=== PATIENT | female | born 1990 | race Caucasian/White ===

== ENCOUNTER 2023-03-20 10:00 | Outpatient (AMB) | payer OTHER, SELFPAY ==
--- NOTE | 2023-03-20 10:06 | A.OFFPC_ITS ---
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 Noticed tachycardia Murmur noticed while previously Allergies - using benadryl PMHx: None SurgHx: None FHx: Mom: Tachycardia, Hypotension Sister: Tachycardia SocHx: Nonsmoker. EtOH: Occasional 1-2 dr. No drugs. [facility] Medical History (Updated 03/20/23 @ 11:24 by Bobby Ramirez) No pertinent past medical history No family history of mental disorder Surgical History (Updated 03/20/23 @ 10:20 by Alison Hooper) No pertinent past surgical history Family History (Updated 03/20/23 @ 10:20 by Alison Hooper) Father Alcoholism Social History (Updated 03/20/23 @ 10:21 by Alison Hooper) Housing: House Alcohol intake: never Patient Tobacco Use Status: Never used Tobacco e-Cigarette/Vaping Use: Never Used Use of substances other than those prescribed or required for medical reasons: No service: No Current occupational status: employed Current occupation: [employer] Current occupational exposures/hazards: Yes Cognitive needs: No Hearing needs: No Vision needs: Yes Questionnaire PHQ-9 Over the last 2 weeks, how often have you been bothered by any of the following problems? 1. Little interest or pleasure in doing things: several days 2. Feeling down, depressed, or hopeless: several days 3. Trouble falling or staying asleep, or sleeping too much: several days 4. Feeling tired or having little energy: several days 5. Poor appetite or overeating: not at all 6. Feeling bad about yourself - or that you are a failure or have let yourself or your family down: not at all 7. Trouble concentrating on things, such as reading the newspaper or watching t elevision: not at all 8. Moving or speaking so slowly that other people could have noticed. Or the opposite - being so fidgety or restless that you have been moving around a lot more than usual: not at all 9. Thoughts that you would be better off or of hurting yourself in some way: not at all Total score: 4 Depression Screening Interpretation: Negative [id number] - PHQ-9 Billing: Yes Source: Developed by Drs. Yogesh Ferrer, Malina Anderson, Federico Hyde and colleagues, with an educational serena from [employer]. Thrive Questionnaire Date Thrive assessed: 03/20/23 I am a: Patient What is your living situation today?: I have a steady place to live Within the past 12 months, did the food you bought not last and you didn't have the money to get more?: Never true Within the past 12 months, did you worry whether your food would run out before you got money to buy more?: Never true Do you have trouble getting transportation to medical appointments?: No Do you have trouble paying your heating and electricity bill?: No Do you have trouble taking care of your child, family member or friend?: No Do you have trouble with day-to-day activities such as bathing, preparing meals, shopping, managing finances, etc.?: No Are you currently unemployed and looking for a job?: No Are you interested in more education?: No Please select the resources that you would like help with: None Currently or been in a relationship where the following occur: no concerns reported AUDIT C Alcohol Use Questionnaire (AUDIT-C) 1. How often do you have a drink containing alcohol?: Never 3. How often do you have six or more drinks on one occasion?: Never Total Score: 0 JARED-7 AMB Questionnaire JARED-7 Date JARED - 7 assessed: 03/20/23 Feeling nervous, anxious, or on edge: 1 = Several days Not being able to stop or control worryin = Several days Worrying too much about different things: 1 = Several days Trouble relaxin = Several days Being so restless that it is hard to sit still: 1 = Several days Becoming easily annoyed or irritable: 1 = Several days Feeling afraid as if something awful might happen: 0 = Not at all Total JARED-7 score (0-4 normal; 5-9 mild; 10-14 moderate; 15-21 severe): 6 Source: Developed by Drs. Yogesh Ferrer, Malina Anderson, Federico Hyde and colleagues, with an educational serena from [employer]. JARED-7 Assessment Billing JARED-7 Assessment Tool: JARED-7 Assessment 27623 Review of Systems Const Denies chills, Denies fatigue, Denies fever(s), Denies headache(s) and Denies weakness ENT Denies dizziness, Denies headache(s), Reports nasal congestion and Reports nasal discharge Card Denies chest pain, Denies lightheadedness, Denies dyspnea and Denies other (Palpitations) Resp Denies cough, Denies dyspnea, Denies wheezing and Denies other ( shortness of breath) Musc Denies numbness and Denies tingling Neuro Denies dizziness, Denies headache(s), Denies numbness, Denies tingling, Denies paresthesias and Denies weakness Psych Denies anxiety and Denies depression Endo Denies fatigue Aller/Immun Denies wheezing Physical exam (Primary Care) Vital Signs: Last Vital Signs Temp 98.9 F 03/20/23 10:07 Pulse 112 H 03/20/23 10:07 Resp 14 03/20/23 10:07 BP 128/70 03/20/23 10:07 Pulse Ox 98 03/20/23 10:07 Oxygen Delivery Method Room Air 03/20/23 10:07 BMI result Body Mass Index 28.2 Tobacco/Smoking Status: Tobacco use Status Tobacco use date assessed 03/20/23 03/20/23 10:11 Patient Tobacco Use Status Never used Tobacco 03/20/23 10:21 e-Cigarette/Vaping Use Never Used 09/27/23 10:21 PHQ-9: PHQ-9 Score PHQ-9: Total score 4 03/20/23 10:15 Depression Screening Interpretation: Negative Thrive Assessment: Date of Thrive Assessment Date Thrive assessed 03/20/23 03/20/23 10:15 Currently or been in a relationship where the following occur: no concerns reported Const General: no acute distress and well developed Nutritional Appearance: well nourished Orientation/consciousness: patient oriented x3 HENMT Head: Yes normocephalic and Yes atraumatic Eyes General: appearance normal, both eyes and all related structures Pupils: Equal, round and reactive pupils present EOM: EOMs intact bilaterally Resp Effort & Inspection: normal respiratory effort Auscultation: clear to auscultation bilaterally Cardio Rate: tachycardic Rhythm: regular rhythm Heart sounds: S1 normal heart sound present, S2 normal heart sound present, no gallops, Murmur heart sound present (1/6 murmur over the aortic region) and no rubs Neuro General: patient oriented x3 and gait normal Cranial nerves: Yes Equal, round and reactive pupils present Psych Affect: normal affect Assessment and Plan Assessment & Plan (1) Tachycardia: Code(s): R00.0 - Tachycardia, unspecified Plan: EKG: Normal sinus rhythm with normal rate. Normal axis, normal intervals, no hypertrophy, no ST-T-wave changes. Heart rate was elevated at initial presentation and during examiner's evaluation by auscultation; heart rate significantly increases with standing/moving. Check Holter monitor test (2) Murmur: Code(s): R01.1 - Cardiac murmur, unspecified Plan: Faint systolic murmur 1/6 at aortic region. Patient also has tachycardia Check echo (3) Allergies: Code(s): T78.40XA - Allergy, unspecified, initial encounter Plan: Allergies and sinusitis, likely sinus infection. Start Z-Adalberto and nasal steroid. Can continue nasal steroid. She can also Continue Benadryl (4) Sinusitis: Code(s): J32.9 - Chronic sinusitis, unspecified Plan: As above (5) History of ectopic : Code(s): Z87.59 - Personal history of other complications of , childbirth and the puerperium Plan: No sequela (6) Laboratory exam ordered as part of routine general medical examination: Code(s): Z00.00 - Encounter for general adult medical examination without abnormal findings Plan: Check labs Orders: Orders Lipid Panel Today Z00.00 - Encounter for general adult medical examination without abnormal findings TSH reflex Free T4 Today Z00.00 - Encounter for general adult medical examination without abnormal findings Hepatitis B,C Profile Today Z11.3 - Encounter for screening for infections with a predominantly sexual mode of transmission CT NG by PCR Today Z11.3 - Encounter for screening for infections with a predominantly sexual mode of transmission CA echo transthoracic complete Today R00.0 - Tachycardia, unspecified, R01.1 - Cardiac murmur, unspecified ECG holter monitor 48 hour Today R00.0 - Tachycardia, unspecified Comprehensive [place]. Panel Fast Today Z00.00 - Encounter for general adult medical examination without abnormal findings Microalbumin, Random (w Creat) Today I10 - Essential (primary) hypertension UA and rflx microscopic Today Z00.00 - Encounter for general adult medical examination without abnormal findings Syphilis Screen Today Z11.3 - Encounter for screening for infections with a predominantly sexual mode of transmission HIV Ab/Ag Today Z11.3 - Encounter for screening for infections with a predominantly sexual mode of transmission AMB EKG-In Office Today R00.0 - Tachycardia, unspecified Medications: New azithromycin (Zithromax Z-Adalberto) take 500 mg today (day 1), then 250 mg for 4 days (days 2-5) PO 6 tabs 0RF 5 days fluticasone propionate 50 mcg/actuation (Flonase Allergy Relief) administer into each nostril 1 spray intranasal Q12H 16 grams 2RF 30 days Coding Level of Care Code New Pt Level 4 (64198) Diagnoses Tachycardia R00.0 Murmur R01.1 Allergies T78.40XA Sinusitis J32.9 History of ectopic Z87.59 Laboratory exam ordered as part of routine general medical examination Z00.00 Additional Codes JARED-7 Assessment Billing - JARED-7 Assessment Tool: JARED-7 Assessment 53234 ([id number])
[2023-03-20 10:07] VITALS: BP 128/70; PULSE 112; RESP 14; TEMP 37.2; O2SAT 98; BMI 28.2
== END 2023-03-20 11:44 | disposition home or self-care (01) ==
PROVIDERS: PCP Nurse Practitioner Family; Visit Provider Family Medicine
DX: R00.0 Tachycardia, unspecified (principal); R01.1 Cardiac murmur, unspecified; T78.40XA Allergy, unspecified, initial encounter; J32.9 Chronic sinusitis, unspecified; Z87.59 Personal history of other complications of pregnancy, childbirth and the puerperium; Z00.00 Encounter for general adult medical examination without abnormal findings
CPT/HCPCS: 99204

== ENCOUNTER → 2023-04-18 07:59 | Outpatient (REF) | payer OTHER, SELFPAY ==
--- NOTE | 2023-04-18 08:02 | HM_ITS ---
conclusion: 1. Patient was monitored for total period of 2 days 2. Baseline was normal sinus rhythm with average heart of 84 beats per minute 3. Rare ectopy noted 4. No significant pauses noted 5. Patient did not report any symptoms MTDD
--- NOTE | 2023-04-18 08:02 | CA_ITS ---
Transthoracic Echocardiogram Patient (Last, First, Middle): Verenice Fernando, Gender: Female Date of : 1990 Age: 33 Procedure Date: 04/18/2023 Procedure Type: Transthoracic Echocardiogram Location: OP Height: 152.4 cm Weight: 62.14 kg BSA: 1.59 m2 Heart Rate: bpm BP: 118 / 78 mmHg Macroeconomics Professor: TO Referring MD: Bulmaro Anne MD Drawing Press Operator: Laron Kunz MD Symptoms: R00.0 - Tachycardia, unspecified Study Quality: Adequate/Contrast ECG Rhythm: Sinus Conclusions: - Essentially normal study Findings Procedure Information Contrast agent, definity, is being given per protocol without apparent complications. Left Ventricle Normal left ventricular size, thickness, and systolic function. The visually estimated ejection fraction is between 60-65%. Diastolic function is normal for age. Right Ventricle Normal right ventricular cavity size and systolic function. Atria Both atria are normal in size. Interatrial shunt cannot be excluded. Aortic Valve Normal aortic valve structure and function. There is no aortic valve stenosis. There is no aortic valve regurgitation. Mitral Valve Normal mitral valve structure and function. There is mild anterior mitral leaflet thickening. There is trace mitral valve regurgitation. There is no mitral valve stenosis. Pulmonic Valve The pulmonic valve is likely normal. Tricuspid Valve Normal tricuspid valve structure. Tricuspid regurgitation envelope is inadequate for calculation of right ventricular systolic pressure. Normal right atrial pressure. Great Vessels All visible segments of the aorta are normal in size. The pulmonary artery was not well visualized. Venous The inferior vena cava is normal in size and collapses greater than 50% with inspiration. Pericardium/Pleural There is no evidence of pericardial effusion. Prior Study Comparison No prior study available for comparison. Measurements 2D Linear Measurements IVSd: 0.95 0.6-0.9/0.6-1.0 cm LVIDd: 4.46 3.9-5.3/4.2-5.9 cm LVIDd Index: 2.81 2.4-3.2/2.2-3.1 cm/m2 LVIDs: 3.18 2.0-3.6 cm LVPWd: 0.67 0.7-1.1 cm LA Diam: 3.40 2.7-3.8/3.0-4.0 cm LAIDs Index: 2.14 1.5-2.3 cm/m2 LV Mass: 141.25 67-162/88-224 g LV Mass Index: 88.84 43-95/49-115 g/m2 LVOT Diam: 2.00 3.0+(-)1.3 cm 2D Systolic Function EF 4C: 65.10 >55% EF 2C: 60.20 >55% EF BiP: 64.50 >55% Mitral Valve MV Pk E: 0.68 MV PK A: 0.50 MV Decel Time: 147.00 E/A: 1.40 E'Lateral: 16.10 E'Medial: 11.90 E/E' Med: 5.70 E/E' Lat: 4.20 PHT: 43.00 MVA PHT: 5.12 Decel [place]: 4.60 Aortic Valve AoV Pk Gato: 1.26 AoV Mn Gato: 0.93 AoV VTI: 0.26 AoV Pk Grad: 6.00 Aov Mn Grad: 4.00 JOSE Cont.VTI: 2.45 LVOT LVOT Pk Gato: 1.09 LVOT Mn Gato: 0.75 LVOT VTI: 0.20 LVOT Pk Grad: 5.00 LVOT Mn Grad: 3.00 LVOT Diam: 2.00 LVOT Area: 3.14 Diastolic Function MV Pk E: 0.68 MV Pk A: 0.50 E/A: 1.40 E'Medial: 11.90 E/E' Med: 5.70 E' Laterial: 16.10 E/E' Lat: 4.20 Right Ventricle TAPSE (mm): 23.50 TVS' Gato: 11.00 Tricuspid Valve RA Press: 3.00 Great Vessels Aorta Sinus of Valsalva: 2.82 2.0-3.5 cm Ao Asc: 2.70 2.1-3.4 cm Updated in Other Vendor System with Status of Final Laron Kunz MD electronically signed on 04/19/2023 8:15:35 AM with status of Final
== END ==
LOC: HO.CARD 07:59
PROVIDERS: PCP Family Medicine; Visit Provider Family Medicine
DX: R00.0 Tachycardia, unspecified (principal); R01.1 Cardiac murmur, unspecified
CPT/HCPCS: 93225; 93306; Q9957

== ENCOUNTER → 2023-04-18 08:02 | Outpatient (BNV) | payer OTHER, SELFPAY | PROVIDERS: PCP Family Medicine; Visit Provider Internal Medicine Cardiovascular Disease | DX: R00.0 Tachycardia, unspecified (principal) | CPT/HCPCS: 93227; 93306 ==